=== PATIENT | female | born 1985 | race Caucasian/White ===

== ENCOUNTER 2016-11-08 13:19 | Emergency (ER) | payer OTHER ==
[~2016-11-08] VITALS: Ht 154.9 cm; Wt 98.9 kg
[2016-11-08 13:27] VITALS: BP 119/76
[2016-11-08] MEDS ORDERED: LIDOCAINE 1% 500 MG/50 ML VIAL INJ ONE (13:55)
[2016-11-08 16:08] VITALS: BP 119/76
--- NOTE | 2016-11-08 16:09 | NUR ---
PATIENT IS A 30 YO FEMALE WITH LACERATION TO WEB OF RIGHT THUMB BLEEDING CONTROLLED TETANUS UP TO DATE. TO BED 5 FOR SUTURE BY .
--- NOTE | 2016-11-08 16:10 | NUR ---
WOUND CLOSED CLEANED AND DRESSED SITE CLEAR NO BLEEDING.
--- NOTE | 2016-11-08 16:11 | NUR ---
Patient discharged with v/s stable. Written and verbal after care instructions given and explained. Patient alert, oriented and verbalized understanding of instructions. Ambulatory with steady gait. All questions addressed prior to discharge. ID band removed. Patient advised to follow up with PMD. Rx of BACITRACIN AND TYLENOL given. Patient educated on indication of medication including possible reaction and side effects. Opportunity to ask questions provided and answered.
== END 2016-11-08 16:11 | disposition home or self-care (01) ==
LOC: MED 13:19
DX: S61.411A Laceration without foreign body of right hand, initial encounter (principal); W45.8XXA Other foreign body or object entering through skin, initial encounter; Y93.G1 Activity, food preparation and clean up; Y92.89 Other specified places as the place of occurrence of the external cause; Y99.8 Other external cause status
CPT/HCPCS: 12002; 99283; J2001

== ENCOUNTER 2016-11-10 11:47 | Emergency (ER) | payer OTHER ==
[~2016-11-10] VITALS: Ht 175.3 cm; Wt 99.1 kg
[2016-11-10 12:09] VITALS: BP 132/95
--- NOTE | 2016-11-10 20:13 | NUR ---
TO ER BED 3
[2016-11-10 20:35] VITALS: BP 128/78
--- NOTE | 2016-11-10 20:35 | NUR ---
Patient discharged with v/s stable. Written and verbal after care instructions given and explained BY DR. DIETZ. Patient verbalized understanding. Ambulatory with steady gait. All questions addressed prior to discharge. Advised to follow up with PMD.
== END 2016-11-10 20:35 | disposition home or self-care (01) ==
LOC: MED 11:47
DX: S61.011D Laceration without foreign body of right thumb without damage to nail, subsequent encounter (principal); R03.0 Elevated blood-pressure reading, without diagnosis of hypertension; X58.XXXA Exposure to other specified factors, initial encounter